=== PATIENT | female | born 1945 ===

== ENCOUNTER 2018-06-28 06:17 | Day surgery (SDC) | payer MEDICARE, MEDICAID ==
--- NOTE | 2018-06-27 15:30 | Pre-op HX & Phy Repo 2 SIG ---
DATE OF ADMISSION: 06/28/2018 DATE OF SERVICE: 06/27/2018 DATE OF ANTICIPATED SURGERY: 06/28/2018 PREOPERATIVE DIAGNOSIS: Nonclearing vitreous hemorrhage, left eye. BRIEF NOTE: This is the second [place] admission for this patient who is a very nice 72-year-old lady, who complained of dark vision in the left eye over the past two months. She was found to have a nonclearing vitreous hemorrhage related to her diabetes. PAST OCULAR HISTORY: Remarkable for vitrectomy done on the right eye in May 2014. She has had bilateral retinal laser and previous Avastin injections in both eyes. The hemorrhage on the left has failed to clear with this previously being her better eye. PAST MEDICAL HISTORY: Remarkable for diabetes for at least 18 years. MEDICATIONS: She is maintained on Janumet for her diabetes. She also is on glipizide. ALLERGIES: She has no known allergies. PAST SURGICAL HISTORY: She had a prior amputation in 2009. OPHTHALMIC EXAMINATION: Best vision at the time of admission was 20/300 in the right eye and counting fingers in the left with pressures of 11 and 10. The anterior segment showed sluggish reactions bilaterally. There was nuclear sclerosis in either lens. Funduscopic exam of the right eye showed a broad pattern of panretinal laser. There was background retinopathy with significant edema. The left fundus showed optic disc neovascularization and a moderately dense vitreous hemorrhage. The retina appeared attached. A broad pattern of panretinal laser was seen. ASSESSMENT: Nonclearing vitreous hemorrhage, left eye. PLAN: The plan is to perform a pars plana vitrectomy with membrane dissection as needed, extensive endolaser, and an Avastin injection. The risks and benefits of surgery were gone over with the patient with potential infection, hemorrhage, glaucoma, cataract formation, and remote possibility of loss of the eye. The risk of anesthesia was also discussed. The patient understands and consents to the surgery, which will be performed tomorrow morning. Choco Allen M.D. DR: Talon JOB#: [id number] CC:
[~2018-06-28] VITALS: Ht 30.5 cm; Wt 55.3 kg
[2018-06-28] VITALS (8 sets, daily range): BP systolic 152–168; BP diastolic 75–87
[~2018-06-28 06:17] MED LIST: Avastin 10mg Inj IVITRE ONE
--- NOTE | 2018-06-28 06:43 | Pre-Procedure Note/Attestation ---
Pre-Procedure Note/Attestation Complete Prior to Procedure Planned Procedure: left Procedure Narrative: PPV, membrane peel, endolaser, Avastin injection LEFT eye Indications for Procedure Pre-Operative Diagnosis: Non-clearing vitreous hemorrhage Left eye Attestation I attest that I discussed the nature of the procedure; its benefits; risks and complications; and alternatives (and the risks and benefits of such alternatives ), prior to the procedure, with the patient (or the patient's legal customer care representative). I attest that, if there was a reasonable possibility of needing a blood transfusion, the patient (or the patient's legal customer care representative) was given the [facility] standardized written summary, pursuant to the Madan Isael Blood Safety Act ([place] Health and Safety Code # 1645, as amended). I attest that I re-evaluated the patient just prior to the surgery and that there has been no change in the patient's H&P, except as documented below: Choco Allen MD Jun 28, 2018 06:43
[2018-06-28] MEDS ORDERED: Midazolam 2mg/2ml Inj ONE (07:00)
[2018-06-28] MEDS ORDERED: NS Irrig 1000ml ONE (07:00)
[2018-06-28] MEDS ORDERED: LR 1000ml ONE (07:00)
[2018-06-28] MEDS ORDERED: Sterile Water Irrig 1000ml IRRIG ONE (07:00)
[2018-06-28] MEDS ORDERED: Propofol 200mg/20ml IV ONE (07:00)
[2018-06-28] MEDS ORDERED: Lidocaine 2% MPF 5ml Vial INJ ONE (07:01)
[2018-06-28] MEDS ORDERED: EPINEPHrine 1mg/1ml Amp ONE (07:01)
[2018-06-28] MEDS ORDERED: Kenalog-40 1ml Vial ONE (07:01)
[2018-06-28] MEDS ORDERED: Maxitrol Opth Oint 3.5gm ONE (07:01)
[2018-06-28] MEDS ORDERED: Pred Forte 1% Opth Susp 1ml ONE (07:01)
[2018-06-28] MEDS ORDERED: Dexamethasone 4mg/ml vial ONE (07:01)
[2018-06-28] MEDS ORDERED: Kenalog-10 5ml Inj ONE (07:01)
[2018-06-28] MEDS ORDERED: Povidone-Iodine 5% opth solution ONE (07:02)
[2018-06-28] MEDS ORDERED: Bupivacaine 0.75% 30ml vial INJ ONE (07:02)
[2018-06-28] MEDS ORDERED: Tetracaine 0.5% Opth 4ml Soln ONE (07:02)
[2018-06-28] MEDS ORDERED: BSS 500ml btl ONE (07:02)
[2018-06-28] MEDS ORDERED: BSS 15ml BTL ONE ×2 (07:02→08:12)
[2018-06-28] MEDS ORDERED: Sodium Hyaluronate 10 mg/ml 0.85ml ONE (07:04)
[2018-06-28] MEDS ORDERED: fentaNYL 100 mcg/2 mL IV ONE (07:09)
[2018-06-28 07:15] LABS: BASOPHILS % (AUTO) 1.2 % (0.0-2.0); EOSINOPHILS % (AUTO) 4.6 % (0.0-3.0); HEMATOCRIT 32.2 % (37.0-47.0); HEMOGLOBIN 10.6 G/DL (12.0-16.0); LYMPHOCYTES % (AUTO) 26.6 % (20.0-45.0); MEAN CORPUSCULAR VOLUME 89 FL (80-99); MONOCYTES % (AUTO) 9.6 % (1.0-10.0); NEUTROPHILS % (AUTO) 58.1 % (45.0-75.0); PLATELET COUNT 139 K/UL (150-450); RED BLOOD COUNT 3.62 M/UL (4.20-5.40); RED CELL DISTRIBUTION WIDTH 13.4 % (11.6-14.8); WHITE BLOOD COUNT 7.8 K/UL (4.8-10.8)
[2018-06-28] MEDS: Phenylephrine 2.5% Op 2ml Soln LEFT EYE SCH ×3 (07:19→07:49)
[2018-06-28] MEDS: Ciprofloxacin Opth Soln 2.5ml LEFT EYE SCH ×3 (07:19→07:48)
[2018-06-28] MEDS: Flurbiprofen 0.03% Opth Sol 2.5ml LEFT EYE SCH ×3 (07:20→07:49)
[2018-06-28] MEDS: Cyclopentolate 1% Opth Sol 2ml LEFT EYE SCH ×3 (07:20→07:48)
[2018-06-28 07:27] LABS: ANION GAP 6 mmol/L (5-15); BLOOD UREA NITROGEN 34 mg/dL (7-18); CALCIUM 8.8 MG/DL (8.5-10.1); CARBON DIOXIDE 29 MMOL/L (21-32); CHLORIDE 100 MMOL/L (98-107); CREATININE 1.4 MG/DL (0.55-1.30); POTASSIUM 4.3 MMOL/L (3.5-5.1); SODIUM 135 MMOL/L (136-145)
[2018-06-28] MEDS ORDERED: CARVEDILOL25 MG ORAL (07:34)
[2018-06-28] MEDS ORDERED: REPAGLINIDE0.5 MG PO (07:34)
--- NOTE | 2018-06-28 07:53 | Anethesia Preoperative Eval ---
Anesthesia Pre-op PMH/ROS General Date of Evaluation: Jun 28, 2018 Time of Evaluation: 07:15 Anesthesiologist: Teena ASA Score: ASA 3 Mallampati Score Class I : Soft palate, uvula, fauces, pillars visible Class II: Soft palate, uvula, fauces visible Class III: Soft palate, base of uvula visible Class IV: Only hard plate visible Mallampati Classification: Class II Surgeon: Alejandro Diagnosis: Diabetic retinopathy Surgical Procedure: L eye PPV Anesthesia History: none Family History: no anesthesia problems Allergies: Coded Allergies: No Known Allergies (Unverified , 06/27/18) Medications: see eMAR Patient NPO?: Yes Past Medical History Cardiovascular: Reports: HTN, CAD - recent angiogram with stent placement, other; Denies: [place], valve dz, arrhythmia Pulmonary: Denies: asthma, COPD, ROBBI, other Gastrointestinal/Genitourinary: Reports: GERD; Denies: CRI, ESRD, other Neurologic/Psychiatric: Reports: depression/anxiety; Denies: dementia, CVA, TIA, other Endocrine: Reports: DM - on pills ; Denies: hypothyroidism, steroids, other HEENT: Reports: cataract (L), cataract (R), other - DM retinopathy; Denies: glaucoma, [place] (L[place] (R) Hematology/Immune: Reports: anemia - mild, bleeding disorder - anticoagulated; Denies: DVT, other Musculoskeletal/Integumentary: Reports: OA; Denies: RA, DJD, DDD, edema, other PMH Narrative: as above PSxH Narrative: See H&P Anesthesia Pre-op Phys. Exam Physician Exam Constitutional: NAD Neurologic: CN 2-12 intact Cardiovascular: RRR, no M/R/G Respiratory: CTA Gastrointestinal: S/NT/ND Airway Exam Mallampati Score: Class II MO: limited Neck: stiff ROM: limited Teeth: missing Dentures: no upper, no lower Anesthesia Pre-op A/P Labs Hematology Test 06/28/18 06:55 White Blood Count 7.8 K/UL (4.8-10.8) Red Blood Count 3.62 M/UL (4.20-5.40) L Hemoglobin 10.6 G/DL (12.0-16.0) L Hematocrit 32.2 % (37.0-47.0) L Mean Corpuscular Volume 89 FL (80-99) Mean Corpuscular Hemoglobin 29.2 PG (27.0-31.0) Mean Corpuscular Hemoglobin Concent 32.8 G/DL (32.0-36.0) Red Cell Distribution Width 13.4 % (11.6-14.8) Platelet Count 139 K/UL (150-450) L Mean Platelet Volume 7.5 FL (6.5-10.1) Neutrophils (%) (Auto) 58.1 % (45.0-75.0) Lymphocytes (%) (Auto) 26.6 % (20.0-45.0) Monocytes (%) (Auto) 9.6 % (1.0-10.0) Eosinophils (%) (Auto) 4.6 % (0.0-3.0) H Basophils (%) (Auto) 1.2 % (0.0-2.0) Chemistry Test 06/28/18 06:55 Sodium Level 135 MMOL/L (136-145) L Potassium Level 4.3 MMOL/L (3.5-5.1) Chloride Level 100 MMOL/L (98-107) Carbon Dioxide Level 29 MMOL/L (21-32) Anion Gap 6 mmol/L (5-15) Blood Urea Nitrogen 34 mg/dL (7-18) H Creatinine 1.4 MG/DL (0.55-1.30) H Estimat Glomerular Filtration Rate mL/min (>60) Glucose Level 124 MG/DL (74-106) H Calcium Level 8.8 MG/DL (8.5-10.1) Risk Assessment & Plan Assessment: ASA 3 Plan: MAC with peribulbar block Status Change Before Surgery: No Pre-Antibiotics Drug: none Stan Dickinson MD Jun 28, 2018 07:53
[2018-06-28] MEDS ORDERED: Carbachol 0.01% Op Soln 1.5ml vial ONE (08:24)
[2018-06-28] MEDS ORDERED: fentaNYL 100 mcg/2 mL IV PRN (08:30)
--- NOTE | 2018-06-28 08:54 | Brief Operative Note ---
Immediate Post Operative Note Operative Note Chief Complaint: Black clouds in vision Left eye Pre-op Diagnosis: Non-clearing vitreous hemorrhage Left eye Procedure: PPV, membrane peel, Endolaser 1138 spots, Avastin injection Left eye Post-op Diagnosis: same as pre-op Surgeon: justine Anesthesiologist: Teena Anesthesia: MAC Specimen: none Complications: none Condition: stable Fluids: per anesthesia Estimated Blood Loss: none Drains: none Implant(s) used?: No Choco Allen MD Jun 28, 2018 08:54
--- NOTE | 2018-06-28 08:57 | Immediate Post-Op Evaluation ---
Immediate Post-Op Evalulation Immediate Post-Op Evalulation Procedure: L eye PPV laser treatment avastin injection Date of Evaluation: Jun 28, 2018 Time of Evaluation: 08:56 IV Fluids: 300 Blood Products: none Estimated Blood Loss: min Urinary Output: none Blood Pressure Systolic: 156 Blood Pressure Diastolic: 78 Pulse Rate: 67 Respiratory Rate: 20 O2 Sat by Pulse Oximetry: 98 Temperature (Fahrenheit): 97.6 Pain Score (1-10): 1 Nausea: No Vomiting: No Complications none Patient Status: awake, patent, none Hydration Status: adequate Stan Dickinson MD Jun 28, 2018 08:57
[2018-06-28] MEDS ORDERED: HYDROcodone/Acetamin 5/325 tab ORAL PRN (09:00)
[2018-06-28] MEDS ORDERED: Pred Forte 1% Opth Susp 1ml LEFT EYE ONE (09:00)
--- NOTE | 2018-06-28 09:58 | 48 Hour Post Anesthesia Eval ---
Post Anesthesia Evaluation Procedure: L eye PPV laser treatment avastin injection Date of Evaluation: Jun 28, 2018 Time of Evaluation: 09:57 Blood Pressure Systolic: 148 0: 76 Pulse Rate: 68 Respiratory Rate: 20 Temperature (Fahrenheit): 97.5 O2 Sat by Pulse Oximetry: 97 Airway: patent Nausea: No Vomiting: No Pain Intensity: 1 Hydration Status: adequate Cardiopulmonary Status: stable Mental Status/LOC: patient returned to baseline Follow-up Care/Observations: n/a Post-Anesthesia Complications: none Follow-up care needed: ready to discharge Stan Dickinson MD Jun 28, 2018 09:58
--- NOTE | 2018-06-28 18:15 | Pre-op HX & Phy Repo 2 SIG ---
DATE OF ADMISSION: 06/28/2018 PRESURGICAL INTERNAL MEDICINE HISTORY AND PHYSICAL REASON FOR EVALUATION: I was asked by Dr. Choco Allen to see this 72-year-old female, who is going for elective surgery on the left eye. The patient has vitreous hemorrhage, left eye. Please see History and Physical by Dr. Choco Allen. The patient was evaluated. Chart was reviewed. PAST MEDICAL HISTORY AND REVIEW OF SYSTEMS: Remarkable for history of hypertension, history of type 2 diabetes mellitus, history of coronary heart disease. No [place], but last month she had a coronary catheterization with five stents according to son at bedside. The patient denies history of lung problem, asthma, bronchitis, or emphysema. No history of stroke or seizures. Denies history of renal insufficiency. No thyroid problem. No history of anemia. The patient has a history of degenerative joint disease and uses a cane to ambulate. PAST SURGICAL HISTORY: Eye surgery in the past and coronary artery stent placement. FAMILY HISTORY: Father of old age of 103. Mother unknown. PRESENT MEDICATIONS: Include Prandin and Coreg. No history of taking aspirin. ALLERGIES: Not known. HABITS: No history of smoking or alcohol habits. No street drugs. PHYSICAL EXAMINATION: GENERAL: Alert, well-developed, well-nourished female, in her 70s. VITAL SIGNS: Blood pressure 161/77, temperature 97, pulse 65 per minute and regular, O2 saturation 97% on room air. SKIN: Clear and warm. No rashes. No ulcers. LYMPH NODES: Not enlarged. HEENT: Head, normocephalic. Ears, clear. Eyes, full description per Dr. Choco Allen. Mouth, clear and moist. Absent of bottom teeth. No dentures. NECK: Supple. No jugular venous distention. Carotids artery +2. Trachea midline. CHEST: No deformity or asymmetry. LUNGS: Clear to auscultation and percussion. HEART: Sinus rhythm. No ectopy. No murmur. No S3 or S4. ABDOMEN: Soft, benign. Liver and spleen not enlarged. No rebound. EXTREMITIES: No edema. Degenerative joint disease of the knee. No varicose vein. No tenderness of the calf. GENITOURINARY TRACT: Normal for gender. CVA nontender. NERVOUS SYSTEM: No tremor. No nystagmus. LABORATORY DATA: ECG, pending. High blood sugar 131 mg/dL. The patient is NPO since 6:00 p.m. yesterday. IMPRESSION: 1. Vitreous hemorrhage, left eye. 2. Hypertension. 3. Diabetes mellitus, type 2. 4. Coronary heart disease. PLAN: injection to the left eye per Dr. Choco Allen. CONCLUSION: The patient has multiple medical problems including diabetes mellitus, coronary heart disease, and hypertension. The patient did not eat anything from 6:00 p.m. yesterday. Blood sugar this morning 131. The patient's condition optimized for surgery. Thank you very much, Dr. Allen, for privilege to participate in presurgical care of this interesting patient. Aidan Irvin M.D. DR: RODOLFO JOB#: [id number] CC:
--- NOTE | 2018-06-29 18:15 | Operative Note - Dictated ---
DATE OF OPERATION: 06/28/2018 PREOPERATIVE DIAGNOSIS: Nonclearing vitreous hemorrhage, left eye. POSTOPERATIVE DIAGNOSIS: Nonclearing vitreous hemorrhage, left eye. PROCEDURES: 1. Pars plana vitrectomy. 2. Membrane peel. 3. Endolaser. 4. Avastin injection, left eye. SURGEON: Choco Allen M.D. [employer]: None. ANESTHESIA: Local with sedation. ANESTHESIOLOGIST: Stan Dickinson M.D. JUSTIFICATION FOR SURGERY: This -year-old lady developed dark clouds eye for the past two months and was found to have a nonclearing hemorrhage. BRIEF NOTE: The patient was brought to the operating room, placed on operating room table in supine position. After a time-out was agreed upon by the staff, and initial monitoring secured by Dr. Dickinson, retrobulbar and Van Lint blocks were given in the standard way to the left eye. When the blocks taken effect, she was prepped and draped in the normal manner. A lid speculum inserted into the left eye. Using a 23-gauge trocar system, cannulas were placed all except infranasal quadrant. Infusion secured inferotemporally. Vitrectomy was begun posterior to the lens taking care to avoid contact. A central core vitrectomy was done followed by peripheral vitrectomy leaving a small vitreous skirt. A larger surface neovascularization and membrane formation was gently dissected and elevated with the vitreous cutter and removed. No bleeding was encountered. Scleral depression was done and no peripheral breaks, tears, detachments were seen. There were several areas of lightly treated retina in far periphery. The endolaser was then brought to the eye and a power of 0.3 kline, duration 0.2 seconds, a total of 1138 spots were applied in a broad band peripheral to existing laser and surrounding the area of neovascularization and traction inferonasally. No problems were noted. The eye was observed for bleeding and none was seen as a pressure was lowered. The superior cannulas were removed and the wounds noted to be self-sealing. Through the infusion cannula, Avastin 1.25 mg was injected. The eye was reinflated and this cannula also removed. This wound was closed with a single suture of 8-0 Vicryl and the knots rotated. Subconjunctival Decadron and gentamicin were then injected inferiorly and Maxitrol ointment, Cyclogyl drops, moxifloxacin drops, and prednisolone drops were instilled. The eye was patched and shielded. The patient taken to recovery in excellent position. There were no complications. Choco Allen M.D. DR: Ana Maria JOB#: [id number] CC: Choco Allen M.D.; Fax#: [phone]
== END 2018-06-28 10:20 | disposition home or self-care (01) ==
LOC: SUR 06:17
DX: H43.12 Vitreous hemorrhage, left eye (principal); Z95.5 Presence of coronary angioplasty implant and graft; I11.9 Hypertensive heart disease without heart failure; E11.9 Type 2 diabetes mellitus without complications; I25.10 Atherosclerotic heart disease of native coronary artery without angina pectoris; Z79.899 Other long term (current) drug therapy; M19.90 Unspecified osteoarthritis, unspecified site; K21.9 Gastro-esophageal reflux disease without esophagitis; E11.319 Type 2 diabetes mellitus with unspecified diabetic retinopathy without macular edema; F31.9 Bipolar disorder, unspecified; F41.9 Anxiety disorder, unspecified
CPT/HCPCS: 36415; 67039; 67042; 80048; 82962; 85025; J0171; J1100; J2250; J2704; J3010; J3470; J3490; J9035; 94003; 94150